=== PATIENT | female | born 1975 | race Caucasian/White ===

== ENCOUNTER 2021-02-08 10:10 | Emergency (ER) | payer OTHER ==
[~2021-02-08] VITALS: Ht 162.6 cm; Wt 118.0 kg
--- NOTE | 2021-02-08 10:43 | PHYS DOC ---
Past History Past Medical History: DVT, Hypothyroid Additional Past Medical Histor: fibromyalgia, PE, migraines, Past Surgical History: Additional Past Surgical Histo: c section x2 Alcohol Use: Rarely Adult General Chief Complaint Chief Complaint: MULTIPLE COMPLAINTS [facility] HPI Patient is a 45-year-old female presenting for multiple complaints. 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 Presents today with proximately 2 weeks of generalized dizziness that is intermittent in nature. No falls, no gait instability but patient reports that it affects her ability to concentrate and perform activities of daily living during episodes. She is anxious and unsure if this is a panic attack or flareup of her fibromyalgia. She also reports getting extensive work-up in outpatient setting in the [facility] prior to relocating to [facility] for multiple sclerosis and concern for this. No fever, blurred vision/changes in vision, ripping or tearing chest pain, hemoptysis, abdominal pain, bladder or bowel incontinence, no neurologic changes Review of Systems Review of Systems Fourteen body systems of review of systems have been reviewed. See HPI for pertinent positives and negative responses, other [place] all other systems are negative, non-pertinent or non-contributory Physical Exam Physical Exam Constitutional: Well developed, well nourished, no acute distress, non-toxic appearance. HENT: Normocephalic, atraumatic, bilateral external ears normal, oropharynx moist, no oral exudates, nose normal. Eyes: PERRLA, EOMI, conjunctiva normal, no discharge. Neck: Normal range of motion, no tenderness, supple, no stridor. Cardiovascular: Heart rate regular, sinus rhythm, no murmurs rubs or gallops Lungs & Thorax: Bilateral breath sounds clear to auscultation Abdomen: Bowel sounds normal, soft, no tenderness, no masses, no pulsatile masses. Nonsurgical abdomen, no peritoneal signs Skin: Warm, dry, no erythema, no rash. Back: No tenderness, no CVA tenderness. Extremities: No tenderness, no cyanosis, no clubbing, ROM intact, no edema. Neurologic: Alert and oriented X 3, cranial nerves II through XII intact, normal motor & sensory function, no focal deficits noted. Psychologic: Anxious affect and mood Current Patient Data Vital Signs Vital Signs Date Time Temp Pulse Resp B/P (MAP) Pulse Ox O2 Delivery O2 Flow Rate FiO2 6/11/21 10:28 98.8 85 18 117/78 (91) 97 Room Air Lab Results Laboratory Tests Test 02/08/21 10:57 White Blood Count 8.8 x10^3/uL Red Blood Count 4.43 x10^6/uL Hemoglobin 12.3 g/dL Hematocrit 36.4 % Mean Corpuscular Volume 82 fL Mean Corpuscular Hemoglobin 28 pg Mean Corpuscular Hemoglobin Concent 34 g/dL Red Cell Distribution Width 15.8 % Platelet Count 342 x10^3/uL Neutrophils (%) (Auto) 73 % Lymphocytes (%) (Auto) 16 % Monocytes (%) (Auto) 6 % Eosinophils (%) (Auto) 4 % Basophils (%) (Auto) 0 % Neutrophils # (Auto) 6.5 x10^3uL Lymphocytes # (Auto) 1.4 x10^3/uL Monocytes # (Auto) 0.6 x10^3/uL Eosinophils # (Auto) 0.3 x10^3/uL Basophils # (Auto) 0.0 x10^3/uL Sodium Level 141 mmol/L Potassium Level 4.3 mmol/L Chloride Level 104 mmol/L Carbon Dioxide Level 27 mmol/L Anion Gap 10 Blood Urea Nitrogen 11 mg/dL Creatinine 0.9 mg/dL Estimated GFR (Cockcroft-Gault) 68.0 Glucose Level 125 mg/dL Calcium Level 9.0 mg/dL Troponin I Quantitative < 0.017 ng/mL EKG EKG EKG ordered and interpreted by myself at 1059 hrs. as sinus rhythm at 74 bpm, unremarkable intervals, left axis deviation, T wave inversion noted in lead aVL, V4, V5 and V6, no STEMI, no prior EKG to compare to Radiology/Procedures Radiology/Procedures INDICATION: Reason: right arm heaviness, right sided head/eye pain and pressure x 3wk / Spl. Instructions: / History: COMPARISON: None. TECHNIQUE: Axial CT images obtained through the head without intravenous contrast. One or more of the following individualized dose reduction techniques were utilized for this examination: 1. Automated exposure control; 2. Adjustment of the mA and/or kV according to patient size; 3. Use of iterative reconstruction technique. FINDINGS: No intracranial hemorrhage. No midline shift. Basal cisterns patent. Ventricles and sulci are unremarkable. No acute osseous abnormality. Orbits and paranasal sinuses unremarkable. IMPRESSION: * No acute intracranial hemorrhage. Electronically signed by: Maynor Agarwal MD (02/08/2021 11:00 AM) [id number] //////////////////////// INDICATION: Reason: RIGHT SIDED CHEST PAIN / Spl. Instructions: / History: COMPARISON: None. FINDINGS: Single view of chest obtained. Mild elevation of the right hemidiaphragm. No focal airspace consolidation or pulmonary edema. IMPRESSION: * No focal airspace consolidation or edema. Electronically signed by: Maynor Agarwal MD (02/08/2021 12:05 PM) [id number] Heart Score C/O Chest Pain: No HEART Score for Chest Pain: HEART Score for Chest Pain Response (Comments) Value History Slighlty/Non-Suspicious 0 ECG Nonspecific Repolarizatio 1 Age < 45 0 Risk Factors 1 or 2 Risk Factors 1 Troponin < Normal Limit 0 Total 2 Risk Factors: Risk Factors: DM, Current or recent (<one month) smoker, HTN, HLP, family history of CAD, obesity. Risk Scores: Risk Factors: DM, Current or recent (<one month) smoker, HTN, HLP, family history of CAD, obesity. Course & Med Decision Making Course & Med Decision Making Discussed with the patient all findings and diagnostic testing. I discussed most likely diagnosis of anxiety about health versus noncardiac chest pain versus other. Patient does have risk factors; however, I reviewed heart and PERC score and joint decision to defer any further ER work-up. No indication for hospital admission at present. As such, I stressed need for close outpatient follow-up to review today's ER visit. Strict return precautions were also discussed at length with good understanding by patient. Patient voiced understanding and ag reement with the plan. Patient knows to come back for repeat evaluation if concerning signs or symptoms present prior to outpatient follow-up. Hemodynamically stable, ambulatory and well-appearing at time of disposition. Dragon Disclaimer Dragon Disclaimer This electronic medical record was generated, in whole or in part, using a voice recognition dictation system. PERC Rule for PE PERC Rule for PE Response (Comments) Value Age > 50: No 0 HR > 100: No 0 Sa02 on room air <95%: No 0 Unilateral leg swelling: No 0 Hemoptysis: No 0 Recent surgery or trauma: No 0 Prior PE or DVT: No 0 Hormone use: No 0 Total 0 Departure Departure: Impression: Primary Impression: Chest pain Additional Impression: Paresthesias with subjective weakness Disposition: 01 HOME / SELF CARE / HOMELESS Condition: STABLE Referrals: JOS GONZALEZ MD (PCP) JEANNETTE HENRY MD Patient Instructions: Chest Pain (Nonspecific), Paresthesia Additional Instructions: You were seen for chest pain, paresthesias and other complaints. Your workup did not show any acute abnormalities today, but does not indicate that you do not have underlying cardiovascular disease or other undiagnosed pathology. As discussed at length, it is recommended that you contact the provided neurologist whose information is attached for further evaluation and treatment. It would also be beneficial given your risks to review ER visit with your primary care physician and discussed need for outpatient provocative cardiac testing. You should return to the ED if you develop worsening chest pain, shortness of breath, fever, abnormal sweating, leg swelling, or any other new or concerning symptoms. It was a pleasure to take care of you and I wish you the best going forward Problem Qualifiers ASHLEY CAMPOS DO Feb 08, 2021 10:43
--- NOTE | 2021-02-08 11:03 | RAD ---
INDICATION: Reason: right arm heaviness, right sided head/eye pain and pressure x 3wk / Spl. Instruct ions: / History: COMPARISON: None. TECHNIQUE: Axial CT images obtained through the head without intravenous contrast. One or more of the following individualized dose reduction techniques were utilized for this examinat ion: 1. Automated exposure control; 2. Adjustment of the mA and/or kV according to patient size; 3 . Use of iterative reconstruction technique. FINDINGS: No intracranial hemorrhage. No midline shift. Basal cisterns patent. Ventricles and sulci are unremarkable. No acute osseous abnormality. Orbits and paranasal sinuses unremarkable. IMPRESSION: * No acute intracranial hemorrhage. Electronically signed by: Maynor Agarwal MD (02/08/2021 11:00 AM) [id number]
--- NOTE | 2021-02-08 11:06 | EKG ---
[address] [address] Test Date: 2021-02-08 Test Time: 10:52:05 Pat Name: KEENA NELSON Department: Room: Gender: F Continuous Improvement Black Belt: JACQUES : 1975 Requested By: ASHLEY CAMPOS Order Number: [id number] Reading MD: Measurements Intervals [place] Rate: 74 P: 38 KS: 172 QRS: 0 QRSD: 86 T: 54 QT: 374 QTc: 420 Interpretive Statements SINUS RHYTHM LEFTWARD AXIS T ABNORMALITY IN ANTERIOR LEADS ABNORMAL ECG RI6.02 No previous ECG available for comparison
[2021-02-08 11:16] LABS: BASO % 0 % (0-3); EOS # 0.3 x10^3/uL (0.0-0.7); EOS % 4 % (0-3); HEMATOCRIT 36.4 % (36.0-47.0); HEMOGLOBIN 12.3 g/dL (12.0-15.5); LYMPH # 1.4 x10^3/uL (1.0-4.8); LYMPH % 16 % (24-48); MEAN CORPUSCULAR HEMOGLOBIN 28 pg (25-35); MEAN CORPUSCULAR HGB CONC 34 g/dL (31-37); MEAN CORPUSCULAR VOLUME 82 fL (79-100); MONO # 0.6 x10^3/uL (0.0-1.1); MONO % 6 % (0-9); NEUT # 6.5 x10^3uL (1.8-7.7); NEUT % 73 % (31-73); PLATELET COUNT 342 x10^3/uL (140-400); RED BLOOD COUNT 4.43 x10^6/uL (3.50-5.40); RED CELL DISTRIBUTION WIDTH 15.8 % (11.5-14.5); WHITE BLOOD COUNT 8.8 x10^3/uL (4.0-11.0)
[2021-02-08 11:24] LABS: CREATININE 0.9 mg/dL (0.6-1.0); POTASSIUM 4.3 mmol/L (3.5-5.1)
--- NOTE | 2021-02-08 12:07 | RAD ---
INDICATION: Reason: RIGHT SIDED CHEST PAIN / Spl. Instructions: / History: COMPARISON: None. FINDINGS: Single view of chest obtained. Mild elevation of the right hemidiaphragm. No focal airspace consolidation or pulmonary edema. IMPRESSION: * No focal airspace consolidation or edema. Electronically signed by: Maynor Agarwal MD (02/08/2021 12:05 PM) [id number]
[2021-02-08 12:20] VITALS: BP 118/67
== END 2021-02-08 12:40 | disposition home or self-care (01) ==
LOC: ER 10:10
DX: R07.89 Other chest pain (principal); R42 Dizziness and giddiness; R20.2 Paresthesia of skin; Z86.718 Personal history of other venous thrombosis and embolism
CPT/HCPCS: 36415; 70450; 71045; 80048; 84484; 85025; 93005; 99285-25

== ENCOUNTER 2022-01-10 11:42 | Emergency (ER) | payer OTHER ==
[~2022-01-10] VITALS: Ht 162.6 cm; Wt 99.6 kg
[2022-01-10] MEDS ORDERED: IV NORMAL SALINE 1,000ML 1,000 ML IV ONE (12:15)
[2022-01-10] MEDS ORDERED: KETOROLAC 15 MG/ML VIAL. IVP ONE (12:15)
[2022-01-10] MEDS ORDERED: ONDANSETRON PF 4 MG/2 ML VIAL. IVP ONE (12:15)
[2022-01-10 12:27] LABS: CALCIUM 9.1 mg/dL (8.5-10.1); POTASSIUM 3.6 mmol/L (3.5-5.1)
[2022-01-10 12:35] LABS: ALBUMIN 3.5 g/dL (3.4-5.0); TOTAL BILIRUBIN 0.6 mg/dL (0.2-1.0)
--- NOTE | 2022-01-10 12:53 | RAD ---
PQRS Compliance Statement: One or more of the following individualized dose reduction techniques were utilized for this examinat ion: 1. Automated exposure control 2. Adjustment of the mA and/or kV according to patient size 3. Use of iterative reconstruction technique CT abdomen/pelvis without contrast 01/10/2022 12:37 PM INDICATION: Left flank pain, hematuria. COMPARISON: None available TECHNIQUE: Multiple axial CT images of the abdomen and pelvis were obtained without intravenous contr ast. Coronal and sagittal reformats are provided. FINDINGS: Visualized portions of the lung bases are clear. Heart size is within normal limits. Evaluation of the solid abdominal viscera is limited by lack of intravenous contrast. No suspicious hepatic masses are identified. Spleen, bilateral adrenal glands, and pancreas are denia l in appearance. Calcified gallstones identified at the gallbladder. No pericholecystic inflammatory changes. The abdominal aorta is normal in course and caliber. There are no pathologically enlarged lymph nodes in the abdomen and pelvis. There is no abdominal free fluid. There is no free intraperitoneal air. R etroaortic left renal vein. Postoperative changes are identified from See-en-Y gastric bypass. Small and large bowel are normal in caliber. There is no evidence for bowel obstruction. There are no lisa colonic inflammatory changes. A normal, nondilated appendix is visualized without adjacent inflammato ry changes. The kidneys are relatively symmetric in appearance. There is no suspicious renal mass within the limi tations of a noncontrast examination. There is a 1-2 mm nonobstructing calculus identified in the pro ximal left ureter without significant hydronephrosis. Urinary bladder is within normal limits given d egree of distention. Follicular changes identified in the adnexa. Uterus is normal by CT. No suspicio us osseous abnormality is identified. IMPRESSION: 1. There is a 1 to 2 mm nonobstructing kyphosis in the proximal left ureter without significant hydro nephrosis. No additional calculi identified within the kidneys. 2. Remote gastric bypass without evidence for bowel obstruction or inflammation. Electronically signed by: Dinorah Goodrich MD (01/10/2022 12:51 PM) [id number]
[2022-01-10 12:54] LABS: BASO % 0 % (0-3); EOS # 0.2 x10^3/uL (0.0-0.7); EOS % 2 % (0-3); HEMATOCRIT 38.1 % (36.0-47.0); HEMOGLOBIN 12.7 g/dL (12.0-15.5); LYMPH # 1.2 x10^3/uL (1.0-4.8); LYMPH % 13 % (24-48); MEAN CORPUSCULAR HEMOGLOBIN 28 pg (25-35); MEAN CORPUSCULAR HGB CONC 33 g/dL (31-37); MEAN CORPUSCULAR VOLUME 84 fL (79-100); MONO # 0.6 x10^3/uL (0.0-1.1); MONO % 6 % (0-9); NEUT # 7.5 x10^3uL (1.8-7.7); NEUT % 79 % (31-73); PLATELET COUNT 295 x10^3/uL (140-400); RED BLOOD COUNT 4.53 x10^6/uL (3.50-5.40); RED CELL DISTRIBUTION WIDTH 15.8 % (11.5-14.5); WHITE BLOOD COUNT 9.5 x10^3/uL (4.0-11.0)
[2022-01-10 13:09] LABS: BACTERIA,URINE FEW /HPF (0-FEW); CLARITY,URINE CLEAR; COLOR,URINE YELLOW; GLUCOSE,URINE NEG (NEG); NITRITE,URINE NEG (NEG); RBC,URINE >40 /HPF (0-2); SQUAMOUS EPITHELIAL CELL,UR MOD /LPF; UROBILINOGEN,URINE 0.2 mg/dL (0.2 mg/dL); WBC,URINE OCC /HPF (0-4)
[2022-01-10 13:13] LABS: U PREG PATIENT NEGATIVE (NEG)
[2022-01-10 13:21] VITALS: BP 109/76
[2022-01-10] MEDS ORDERED: TAMS0.4C97 PO (13:28)
--- NOTE | 2022-01-10 13:29 | PHYS DOC ---
Past History Past Medical History: DVT, Hypothyroid Additional Past Medical Histor: fibromyalgia, PE, migraines, Past Surgical History: , Gastric Bypass Additional Past Surgical Histo: c section x2 Alcohol Use: Rarely General Adult EDM: Chief Complaint: FLANK PAIN HPI: HPI: Patient is a 46-year-old female who presents emergency department with complaints of left-sided flank pain and pink-tinged urine since yesterday. She denies any dysuria, increased urinary frequency, difficulty voiding, or foul- smelling urine. Patient states that the pain started in her lower left quadrant and spreads to her left flank. She denies any fever, cough, vomiting, diarrhea, constipation, chest pain, palpitations, headache or body aches. Patient states that when the pain began yesterday it felt like a sharp stabbing sensation that caused her to break out in a sweat and feel nauseous. She currently denies any nausea. She rates the pain at a 4 out of 10 on the pain scale at this time. She denies any previous history of kidney stones. Patient states she went to her primary care doctor this morning and was told that there was large amount of blood in her urine so they sent her here to rule out a kidney stone. Review of Systems: Review of Systems: Complete ROS is negative unless otherwise noted in the HPI. Current Medications: Current Meds: Current Medications Medications (Trade) Dose Ordered Sig/Cayetano Start Time Stop Time Status Last Admin Dose Admin Ketorolac Tromethamine (Toradol 15mg Vial) 15 mg 1X ONCE 01/10/22 12:15 01/10/22 12:19 DC 01/10/22 12:15 15 MG Ondansetron HCl (Zofran) 4 mg 1X ONCE 01/10/22 12:15 01/10/22 12:19 DC 01/10/22 12:15 4 MG Sodium Chloride 1,000 ml @ 1,000 mls/hr 1X ONCE 01/10/22 12:15 01/10/22 13:14 DC 01/10/22 12:15 1,000 MLS/HR Allergies: Allergies: Allergies Coded Allergies Type Severity Reaction Last Updated Verified Penicillins Allergy Unknown 01/10/22 Yes Physical Exam: PE: See above Constitutional: Well developed, well nourished, no acute distress, non-toxic appearance, obese. [] HENT: Normocephalic, atraumatic, bilateral external ears normal, nose normal. [] Eyes: PERRLA, EOMI, conjunctiva normal, no discharge. [] Neck: Normal range of motion, no stridor. [] Cardiovascular:Heart rate regular rhythm, no murmur Lungs & Thorax: Respirations even and unlabored, no retractions, no respiratory distress, lungs CTA Abdomen: soft, nontender to palpation, no palpable mass, no rebound tenderness, no guarding Back: No CVA tenderness Skin: Warm, dry, no erythema, no rash. [] Extremities: No cyanosis, ROM intact, no edema. [] Neurologic: Alert and oriented X 3, normal motor, normal sensory, no focal deficits noted. [] Psychologic: Affect normal, judgement normal, mood normal. [] Current Patient Data: Labs: Laboratory Tests Test 01/10/22 12:05 White Blood Count 9.5 x10^3/uL (4.0-11.0) Red Blood Count 4.53 x10^6/uL (3.50-5.40) Hemoglobin 12.7 g/dL (12.0-15.5) Hematocrit 38.1 % (36.0-47.0) Mean Corpuscular Volume 84 fL (79-100) Mean Corpuscular Hemoglobin 28 pg (25-35) Mean Corpuscular Hemoglobin Concent 33 g/dL (31-37) Red Cell Distribution Width 15.8 % (11.5-14.5) H Platelet Count 295 x10^3/uL (140-400) Neutrophils (%) (Auto) 79 % (31-73) H Lymphocytes (%) (Auto) 13 % (24-48) L Monocytes (%) (Auto) 6 % (0-9) Eosinophils (%) (Auto) 2 % (0-3) Basophils (%) (Auto) 0 % (0-3) Neutrophils # (Auto) 7.5 x10^3uL (1.8-7.7) Lymphocytes # (Auto) 1.2 x10^3/uL (1.0-4.8) Monocytes # (Auto) 0.6 x10^3/uL (0.0-1.1) Eosinophils # (Auto) 0.2 x10^3/uL (0.0-0.7) Basophils # (Auto) 0.0 x10^3/uL (0.0-0.2) Urine Collection Type Clean catch Urine Color Yellow Urine Clarity Clear Urine pH 6.0 Urine Specific [place] 1.010 Urine Protein Neg (NEG-TRACE) Urine Glucose (UA) Neg mg/dL (NEG) Urine Ketones (Stick) Trace mg/dL (NEG) Urine Blood Large (NEG) Urine Nitrite Neg (NEG) Urine Bilirubin Neg (NEG) Urine Urobilinogen Dipstick 0.2 mg/dL (0.2 mg/dL) Urine Leukocyte Esterase Neg (NEG) Urine RBC >40 /HPF (0-2) Urine WBC Occ /HPF (0-4) Urine Squamous Epithelial Cells Mod /LPF Urine Bacteria Few /HPF (0-FEW) Urine Test Negative (NEG) Sodium Level 137 mmol/L (136-145) Potassium Level 3.6 mmol/L (3.5-5.1) Chloride Level 100 mmol/L (98-107) Carbon Dioxide Level 27 mmol/L (21-32) Anion Gap 10 (6-14) Blood Urea Nitrogen 15 mg/dL (7-20) Creatinine 1.0 mg/dL (0.6-1.0) Estimated GFR (Cockcroft-Gault) 60.0 BUN/Creatinine Ratio 15 (6-20) Glucose Level 166 mg/dL (70-99) H Calcium Level 9.1 mg/dL (8.5-10.1) Total Bilirubin 0.6 mg/dL (0.2-1.0) Aspartate Amino Transferase (AST) 15 U/L (15-37) Alanine Aminotransferase (ALT) 26 U/L (14-59) Alkaline Phosphatase 122 U/L (46-116) H Total Protein 7.0 g/dL (6.4-8.2) Albumin 3.5 g/dL (3.4-5.0) Albumin/Globulin Ratio 1.0 (1.0-1.7) Vital Signs: Vital Signs Date Time Temp Pulse Resp B/P (MAP) Pulse Ox O2 Delivery O2 Flow Rate FiO2 01/10/22 13:21 81 16 109/76 (87) 99 Room Air 01/10/22 11:46 97.7 EKG: EKG: [] Radiology/Procedures: Radiology/Procedures: PROCEDURE: CT ABDOMEN PELVIS WO CONTRAST PQRS Compliance Statement: One or more of the following individualized dose reduction techniques were utilized for this examination: 1. Automated exposure control 2. Adjustment of the mA and/or kV according to patient size 3. Use of iterative reconstruction technique CT abdomen/pelvis without contrast 01/10/2022 12:37 PM INDICATION: Left flank pain, hematuria. COMPARISON: None available TECHNIQUE: Multiple axial CT images of the abdomen and pelvis were obtained without intravenous contrast. Coronal and sagittal reformats are provided. FINDINGS: Visualized portions of the lung bases are clear. Heart size is within normal limits. Evaluation of the solid abdominal viscera is limited by lack of intravenous contrast. No suspicious hepatic masses are identified. Spleen, bilateral adrenal glands, and pancreas are normal in appearance. Calcified gallstones identified at the gallbladder. No pericholecystic inflammatory changes. The abdominal aorta is normal in course and caliber. There are no pathologically enlarged lymph nodes in the abdomen and pelvis. There is no abdominal free fluid. There is no free intraperitoneal air. Retroaortic left renal vein. Postoperative changes are identified from See-en-Y gastric bypass. Small and large bowel are normal in caliber. There is no evidence for bowel obstruction. There are no pericolonic inflammatory changes. A normal, nondilated appendix is visualized without adjacent inflammatory changes. The kidneys are relatively symmetric in appearance. There is no suspicious renal mass within the limitations of a noncontrast examination. There is a 1-2 mm nonobstructing calculus identified in the proximal left ureter without significant hydronephrosis. Urinary bladder is within normal limits given degree of distention. Follicular changes identified in the adnexa. Uterus is normal by CT. No suspicious osseous abnormality is identified. IMPRESSION: 1. There is a 1 to 2 mm nonobstructing kyphosis in the proximal left ureter without significant hydronephrosis. No additional calculi identified within the kidneys. 2. Remote gastric bypass without evidence for bowel obstruction or inflammation. Electronically signed by: Dinorah Goodrich MD (01/10/2022 12:51 PM) [id number] [] Heart Score: C/O Chest Pain: No Course & Med Decision Making: Course & Med Decision Making Pertinent Labs and Imaging studies reviewed. (See chart for details) 46-year-old female presents emergency department with left-sided flank pain and concerns of kidney stone. Work-up included labs, and imaging. CBC is unremarkable, CMP revealed mildly elevated glucose and alk phosphatase otherwise unremarkable. UA revealed large amount of blood, was not concerning for a UTI. CT did reveal a 1 to 2 mm stone in the proximal ureter on the left. I advised the patient of these findings. Patient was given a liter normal saline, 4 mg of Zofran, and 15 mg of IV Toradol emergency department. She reported feeling better after these medications. Advised her that we will prescribe Flomax and hydrocodone. Take medications as prescribed. Patient was provided with a urine strainer and a hat to strain her urine for possible stone collection. I also provided patient with kidney stone diet instructions. Patient was encouraged to follow-up with her primary care doctor next week, return to the ER if symptoms worsen or fever develop. Patient verbalized an understanding of home care, medications, follow-up, and return to ED instructions and was in agreement with the plan of care. [] Dragon Disclaimer: Dragon Disclaimer: This electronic medical record was generated, in whole or in part, using a voice recognition dictation system. Departure Departure: Impression: Primary Impression: Ureteral calculus, left Disposition: 01 HOME / SELF CARE / HOMELESS Condition: STABLE Referrals: JOS GONZALEZ MD (PCP) Patient Instructions: Diet for Kidney Stones, Kidney Stones, [id number] Additional Instructions: Fill the prescriptions and use as directed. Increase clear fluids. Strain your urine in the strainer provided, collect the stone and take with you to your primary care doctor or urologist for further evaluation. Follow up with your primary care doctor in 1-2 days. Return to the ER if symptoms worsen or fever develops. Scripts Hydrocodone Bit/Acetaminophen (HYDROCODONE-APAP 5-325 ) 1 Each Tablet 1 TAB PO Q6HRS PRN for PAIN, #12 TAB 0 Refills Prov: SIMÓN ALCANTAR MD 01/10/22 Tamsulosin Hcl (FLOMAX) 0.4 Mg Cap.er.24h 1 CAP PO DAILY for kidney stone for 14 Days, #14 CAP 0 Refills Prov: MARION PRESSLEY APRN 01/10/22 MARION PRESSLEY MUD TANK OPERATOR January 10, 2022 13:28
[2022-01-10] MEDS ORDERED: HYDR-2155 PO (13:31)
== END 2022-01-10 13:54 | disposition home or self-care (01) ==
LOC: ER 11:42
DX: N20.1 Calculus of ureter (principal); E03.9 Hypothyroidism, unspecified; M79.7 Fibromyalgia; G43.909 Migraine, unspecified, not intractable, without status migrainosus; Z86.718 Personal history of other venous thrombosis and embolism; Z98.890 Other specified postprocedural states; Z98.84 Bariatric surgery status; Z88.0 Allergy status to penicillin
CPT/HCPCS: 36415; 74176; 80053; 81001; 81025; 85025; 96361; 96374; 96375; 99284; J1885; J2405; J7030